=== PATIENT | male | born 1940 | race Caucasian/White ===

== ENCOUNTER 2017-04-08 21:56 | Emergency (ER) | payer OTHER, MEDICARE, MEDICAID ==
[~2017-04-08] VITALS: Ht 167.6 cm; Wt 72.6 kg
[~2017-04-08 21:56] MED LIST: ASPIRIN 325MG325 MG PO; BACTRIM DS 8001 TA1 PO; CARDURA2 MG PO; COMBIVENT INH14.7 GM IN; LANOXIN0.25 MG PO; LORTAB 500 MG-11 TAB PO; LORTAB 500 MG-71 TAB PO; NAPROSYN 500MG500 MG PO; NORCO 325 MG-101 TAB PO; PLAVIX 75MG TAB75 MG PO; PRILOSEC20 M1 PO; PYRIDIUM 200MG200 MG PO; Prilosec20 MG PO; XANAX 1MG TABLET1 MG PO
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
[2017-04-08 22:14] LABS: HEMOGLOBIN 16.4 g/dL (14.1-18.0); LYMPH # 1.9 K/mm3 (0.7-4.5); LYMPH % 36.4 % (10-50)
[2017-04-08 22:26] LABS: URINE BILIRUBIN - DIPSTICK NEGATIVE (NEG); URINE BLOOD NEGATIVE (NEG)
[2017-04-08 22:36] LABS: BUN 17 mg/dL (7-18); GFR (ESTIMATED) 37 ML/MIN (>60)
[2017-04-08] MEDS ORDERED: PREDNISONE 20MG20 MG PO (23:11)
[2017-04-08 23:28] VITALS: BP 125/65
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
== END 2017-04-08 23:30 | disposition home or self-care (01) ==
LOC: ER 21:56
PROVIDERS: Emergency Medicine
DX: S32.010A Wedge compression fracture of first lumbar vertebra, initial encounter for closed fracture (principal); S16.1XXA Strain of muscle, fascia and tendon at neck level, initial encounter; S29.019A Strain of muscle and tendon of unspecified wall of thorax, initial encounter; V43.52XA Car driver injured in collision with other type car in traffic accident, initial encounter; Y92.410 Unspecified street and highway as the place of occurrence of the external cause; Z86.73 Personal history of transient ischemic attack (TIA), and cerebral infarction without residual deficits; I10 Essential (primary) hypertension; I25.2 Old myocardial infarction; Z79.02 Long term (current) use of antithrombotics/antiplatelets; Z79.891 Long term (current) use of opiate analgesic; Z79.899 Other long term (current) drug therapy